=== PATIENT | female | born 1995 | race Two or more races ===

== ENCOUNTER 2017-06-29 09:21 | Emergency (ER) | payer MEDICAID ==
[~2017-06-29] VITALS: Ht 157.5 cm; Wt 90.0 kg
[2017-06-29] MEDS ORDERED: OMEP20TA62 PO (10:36)
[2017-06-29] MEDS ORDERED: BIRTH CONTROL (10:37)
[2017-06-29] MEDS ORDERED: FAMOTIDINE 20 MG/2 ML IVP ONE (11:00)
[2017-06-29] MEDS ORDERED: SODIUM CHLORIDE FLUSH 10ML SYR IVF ONE (11:00)
[2017-06-29] MEDS ORDERED: ONDANSETRON 2MG/ML, 2ML IVPush ONE (11:00)
[2017-06-29] MEDS ORDERED: ONDANSETRON 2MG/ML, 2ML ONE (11:08)
[2017-06-29] MEDS ORDERED: FAMOTIDINE 20 MG/2 ML ONE (11:08)
[2017-06-29] MEDS ORDERED: PLEASE ENTER ALLERGIES MC SCH (11:13)
[2017-06-29 11:17] LABS: BASOPHILS # (AUTO) 0.05 x10^3/uL (0-0.1); BASOPHILS % (AUTO) 1 % (0-1); EOSINOPHILS # (AUTO) 0.02 x10^3/uL (0-0.4); EOSINOPHILS % (AUTO) 0 % (1-7); LYMPHOCYTES # (AUTO) 1.95 x10^3/uL (1-3.4); LYMPHOCYTES % (AUTO) 18 % (22-44); MD NO; MEAN CORPUSCULAR HEMOGLOBIN 29.8 pg (27.0-34.8); MEAN CORPUSCULAR HGB CONC 33.9 g/dL (32.4-35.8); MEAN CORPUSCULAR VOLUME 87.7 fL (80-100); MEAN PLATELET VOLUME 9.1 fL (7.4-10.4); MONOCYTES # (AUTO) 0.42 x10^3/uL (0.2-0.8); MONOCYTES % (AUTO) 4 % (2-9); NEUTROPHILS # (AUTO) 8.15 x10^3/uL (1.8-6.8); NEUTROPHILS % (AUTO) 77 % (42-75); PLATELET COUNT 317 x10^3/uL (130-400); RED BLOOD COUNT 5.11 x10^6/uL (3.82-5.3); RED CELL DISTRIBUTION WIDTH 13.4 % (9.6-15.2)
[2017-06-29 11:32] LABS: ALBUMIN 3.9 g/dL (3.4-5.0); ANION GAP 10 mmol/L (5-15); CHLORIDE 109 mmol/L (98-107)
[2017-06-29 11:38] LABS: ALANINE AMINOTRANSFERASE 23 U/L (12-78); ALKALINE PHOSPHATASE 103 U/L (45-117); BILIRUBIN,TOTAL 0.5 mg/dL (0.2-1.0); CREATININE 0.75 mg/dL (0.55-1.02); TOTAL PROTEIN 7.9 g/dL (6.4-8.2)
[2017-06-29 13:04] VITALS: BP 110/77
== END 2017-06-29 13:05 | disposition home or self-care (01) ==
LOC: ED 12:30
DX: K21.9 Gastro-esophageal reflux disease without esophagitis (principal)
CPT/HCPCS: 36415; 76700; 80053; 83690; 84703; 85025; 93005; 96374; 96375; 99285; J2405; S0028

== ENCOUNTER 2018-06-01 10:23 | Outpatient (CLI) | payer OTHER ==
[~2018-06-01 10:23] MED LIST: BIRTH CONTROL; OMEP20TA62 PO
== END 2018-06-01 23:59 | disposition home or self-care (01) ==
LOC: RAD 10:23
PROVIDERS: ATTEND Internal Medicine Hematology & Oncology
DX: R76.12 Nonspecific reaction to cell mediated immunity measurement of gamma interferon antigen response without active tuberculosis (principal)

== ENCOUNTER 2019-09-12 08:45 | Outpatient (CLI) | payer OTHER | END 2019-09-12 23:59 | disposition home or self-care (01) | LOC: RAD 08:45 | PROVIDERS: ATTEND Nurse Practitioner | DX: K21.9 Gastro-esophageal reflux disease without esophagitis (principal) | CPT/HCPCS: 74220 ==